=== PATIENT | male | born 1975 | race Caucasian/White ===

== ENCOUNTER 2018-02-07 17:55 | Inpatient (IN) | payer SELFPAY ==
[~2018-02-07] VITALS: Ht 182.9 cm; Wt 97.3 kg
--- NOTE | 2018-02-07 18:03 | ED.ADGEN ---
Past History Past Medical History: Anxiety, Arthritis, Bipolar, Depression, Other Past Surgical History: Other Smoking: Cigarettes Alcohol Use: None Drug Use: None Adult General Chief Complaint Chief Complaint ".. I came here form Law... for a program... at the [facility].... I... have PTSD..... I took all my Haldol..... and bunch of sedatives.. I ..just want to go asleep .. and never wake up....But all my friends... told be to tell the nurse...." HPI HPI Patient is a 42 year old male who presents with above hx and complaints of over dosage of Haldol and Benzo's. Reported took 72 mg of Haldol and unknown amount of Xanax. Ingestion occurred over 2 hours ago. Patient has medical history of PTSD, depression, polysubstance abuse, anxiety disorder, arthritis, bipolar. Patient is living on campus at [facility] here in [place] for a treatment program. Patient denies previous history of suicide attempts. Review of Systems Review of Systems Patient has no physical complaints other than arthritis Constitutional: Denies fever or chills [] Eyes: Denies change in visual acuity, redness, or eye pain [] HENT: Denies nasal congestion or sore throat [] Respiratory: Denies cough or shortness of breath [] Cardiovascular: No additional information not addressed in HPI [] GI: Denies abdominal pain, nausea, vomiting, bloody stools or diarrhea [] : Denies dysuria or hematuria [] Musculoskeletal: Denies back pain or joint pain []complains of arthritis Integument: Denies rash or skin lesions [] Neurologic: Denies headache, focal weakness or sensory changes [] Endocrine: Denies polyuria or polydipsia [] All other systems were reviewed and found to be within normal limits, except as documented in this note. Family History Family History Family history Limited from patient Current Medications Current Medications Current Medications Medications (Trade) Dose Ordered Sig/[place] Start Time Stop Time Status Last Admin Dose Admin Lactated Ringer's 1,000 ml @ 160 mls/hr Q6H15M 02/07/18 19:15 02/08/18 04:09 160 MLS/HR Multivitamins/ Minerals 10 ml/ Folic Acid 1 mg/ Thiamine HCl 100 mg/Sodium Chloride 1,011.1 ml @ 1,000 mls/ hr 1X ONCE 02/07/18 18:15 02/07/18 19:15 DC 02/07/18 19:36 1,000 MLS/HR See nursing for home meds Allergies Allergies Allergies Coded Allergies Type Severity Reaction Last Updated Verified diclofenac Allergy Unknown 02/07/18 Yes zolpidem Allergy Unknown 02/07/18 Yes Physical Exam Physical Exam Constitutional: , no acute distress, sedate appearance. [] HENT: Normocephalic, atraumatic, bilateral external ears normal, oropharynx moist, no oral exudates, nose normal. [] Eyes: PERRLA, EOMI, conjunctiva normal, no discharge. [] Neck: Normal range of motion, no tenderness, supple, no stridor. [] Cardiovascular:Heart rate regular rhythm, no murmur [] Lungs & Thorax: Bilateral breath sounds equal at apex with scattered wheezes auscultation [] Abdomen: Bowel sounds normal, soft, no tenderness, no masses, no pulsatile masses. [] Skin: Warm, dry, no erythema, no rash. [] Back: No tenderness, no CVA tenderness. [] Extremities: No tenderness, no cyanosis, no clubbing, ROM intact, no edema. [] Neurologic: Alert and oriented X 3, normal motor function, normal sensory function, no focal deficits noted. [] Psychologic: Affect flat, judgement poor insight, mood depressed Current Patient Data Vital Signs Vital Signs Date Time Temp Pulse Resp B/P (MAP) Pulse Ox O2 Delivery O2 Flow Rate FiO2 02/07/18 19:47 67 18 95 02/07/18 17:55 97.9 Room Air Lab Results Laboratory Tests Test 02/07/18 18:03 White Blood Count 6.8 x10^3/uL (4.0-11.0) Red Blood Count 4.33 x10^6/uL (4.30-5.70) Hemoglobin 13.5 g/dL (13.0-17.5) Hematocrit 39.6 % (39.0-53.0) Mean Corpuscular Volume 91 fL (79-100) Mean Corpuscular Hemoglobin 31 pg (25-35) Mean Corpuscular Hemoglobin Concent 34 g/dL (31-37) Red Cell Distribution Width 13.3 % (11.5-14.5) Platelet Count 219 x10^3/uL (140-400) Neutrophils (%) (Auto) 65 % (31-73) Lymphocytes (%) (Auto) 24 % (24-48) Monocytes (%) (Auto) 10 % (0-9) H Eosinophils (%) (Auto) 1 % (0-3) Basophils (%) (Auto) 0 % (0-3) Neutrophils # (Auto) 4.4 x10^3uL (1.8-7.7) Lymphocytes # (Auto) 1.6 x10^3/uL (1.0-4.8) Monocytes # (Auto) 0.7 x10^3/uL (0.0-1.1) Eosinophils # (Auto) 0.1 x10^3/uL (0.0-0.7) Basophils # (Auto) 0.0 x10^3/uL (0.0-0.2) Prothrombin Time 10.3 SEC (9.4-11.4) Prothrombin Time INR 1.0 (0.9-1.1) PTT 25 SEC (23-33) Sodium Level 138 mmol/L (136-145) Potassium Level 4.0 mmol/L (3.5-5.1) Chloride Level 103 mmol/L (98-107) Carbon Dioxide Level 29 mmol/L (21-32) Anion Gap 6 (6-14) Blood Urea Nitrogen 22 mg/dL (8-26) Creatinine 1.2 mg/dL (0.7-1.3) Estimated GFR (Cockcroft-Gault) 66.7 Glucose Level 117 mg/dL (70-99) H Calcium Level 9.1 mg/dL (8.5-10.1) Magnesium Level 2.0 mg/dL (1.8-2.4) Ammonia 27 mcmol/L (11-34) Creatine Kinase 127 U/L (39-308) Troponin I Quantitative < 0.017 ng/mL (0-0.055) BJ-Rec-[id number]-Type Natriuretic Peptide 48 pg/mL (0-124) Salicylates Level 0.7 mg/dL (2.8-20.0) L Salicylate Last Dose Date Unk Salicylate Last Dose Time Unk Acetaminophen Level < 2.0 mcg/mL (10-30) L Acetaminophen Last Dose Date Unk Acetaminophen Last Dose Time Unk Ethyl Alcohol Level < 10 mg/dL (0-10) EKG EKG My interpretation EKG shows a sinus rhythm at 84 bpm no acute morphology[] Radiology/Procedures Radiology/Procedures My interpretation of the chest shows no acute cardiopulmonary findings. There is some basilar atelectasis. Course & Med Decision Making Course & Med Decision Making Pertinent Labs and Imaging studies reviewed. (See chart for details). Discussed presentation, testing and tx. plan. Admit to Dr. Dockery Patient be admitted on suicidal precautions. Follow-up for toxic changes from alleged drug overdose. Consider psych consult in morning. [] Final Impression Final Impression 1. Polysubstance Over Dose 2. Suicidal Attempt 3. Hx. Bipolar 4 Hx Anxiety Disorder 5. PTSD 6. Arthritis complaints 7. Chews Tobacco Dragon Disclaimer Dragon Disclaimer This electronic medical record was generated, in whole or in part, using a voice recognition dictation system. MARCELLA MENDOZA MD Feb 07, 2018 18:03
[2018-02-07] MEDS ORDERED: MVI, ADULT NO.4 WITH VIT K 10 ML, FOLIC ACID SYRINGE for ER 1 MG, THIAMINE INJ 100 MG i... IV ONE ×4 (18:15)
[2018-02-07 18:22] LABS: BASO % 0 % (0-3); EOS # 0.1 x10^3/uL (0.0-0.7); EOS % 1 % (0-3); HEMATOCRIT 39.6 % (39.0-53.0); HEMOGLOBIN 13.5 g/dL (13.0-17.5); LYMPH # 1.6 x10^3/uL (1.0-4.8); LYMPH % 24 % (24-48); MEAN CORPUSCULAR HEMOGLOBIN 31 pg (25-35); MEAN CORPUSCULAR HGB CONC 34 g/dL (31-37); MEAN CORPUSCULAR VOLUME 91 fL (79-100); MONO # 0.7 x10^3/uL (0.0-1.1); MONO % 10 % (0-9); NEUT # 4.4 x10^3uL (1.8-7.7); NEUT % 65 % (31-73); PLATELET COUNT 219 x10^3/uL (140-400); RED BLOOD COUNT 4.33 x10^6/uL (4.30-5.70); RED CELL DISTRIBUTION WIDTH 13.3 % (11.5-14.5); WHITE BLOOD COUNT 6.8 x10^3/uL (4.0-11.0)
[2018-02-07 18:33] LABS: ETHANOL < 10 mg/dL (0-10); SALIC 0.7 mg/dL (2.8-20.0)
[2018-02-07 18:35] LABS: ACETAMIN < 2.0 mcg/mL (10-30)
[2018-02-07 18:44] LABS: CALCIUM 9.1 mg/dL (8.5-10.1); CREATININE 1.2 mg/dL (0.7-1.3); GFR 66.7
[2018-02-07] MEDS ORDERED: IV RINGERS SOLUTION,LACTATED 1,000 ML IV ONE (19:00)
[2018-02-07] MEDS ORDERED: IPRATRPIUM/ALBUTEROL 0.5/2.5MG 3 ML NEBU. NEB SCH (20:00)
--- NOTE | 2018-02-07 20:05 | EKG ---
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
[2018-02-07 20:53] LABS: AMPHETAMINE/METHAMPHETAMINE NEG (NEG); BARBITURATES NEG (NEG); BENZODIAZEPINES NEG (NEG); CANNABINOIDS NEG (NEG); COCAINE NEG (NEG); METHADONE NEG (NEG); OPIATES NEG (NEG); PHENCYCLIDINE NEG (NEG)
[2018-02-07 20:54] LABS: BACTERIA,URINE FEW /HPF (0-FEW); BILIRUBIN,URINE NEG (NEG); CLARITY,URINE CLEAR; COLOR,URINE AMBER; GLUCOSE,URINE NEG (NEG); NITRITE,URINE NEG (NEG); UROBILINOGEN,URINE 1 mg/dL (0.2 mg/dL)
[2018-02-07] MEDS: IV RINGERS SOLUTION,LACTATED 1,000 ML IV SCH (21:22)
[2018-02-07 22:31] VITALS: BP 122/87
[2018-02-07] MEDS ORDERED: GABA600T2 PO (23:11)
[2018-02-07] MEDS ORDERED: TIZANIDINE HCL2 M1 PO (23:17)
[2018-02-07] MEDS ORDERED: OMEP20TA8 PO (23:18)
[2018-02-07] MEDS ORDERED: DIVA500T4 PO (23:18)
[2018-02-07] MEDS ORDERED: QUET100T4 PO (23:21)
[2018-02-07] MEDS ORDERED: QUET200T4 PO (23:22)
[2018-02-07] MEDS ORDERED: BUPR1FIL5 SL (23:24)
[2018-02-07 23:25] VITALS: BP 114/80
[2018-02-07 23:48] VITALS: BP 99/65
[2018-02-08] VITALS (11 sets, daily range): BP systolic 86–119; BP diastolic 48–74
[2018-02-08] MEDS ORDERED: IBUP400T18 PO
[2018-02-08] MEDS ORDERED: DOCU100C28 PO
[2018-02-08] MEDS ORDERED: FLUO40CA2 PO (00:02)
[2018-02-08] MEDS ORDERED: CHOL10003 PO (00:06)
[2018-02-08] MEDS ORDERED: BISA5TAB4 PO (00:07)
[2018-02-08] MEDS ORDERED: DEXT15DR5 EACHEYE (00:08)
[2018-02-08] MEDS ORDERED: THIA100T8 PO (00:08)
[2018-02-08] MEDS ORDERED: SODI30SP NS (00:09)
[2018-02-08] MEDS: IV RINGERS SOLUTION,LACTATED 1,000 ML IV SCH (04:09)
[2018-02-08] MEDS ORDERED: ALBUTEROL SULFATE 2.5 MG/3 ML NEBU. NEB PRN (05:30)
[2018-02-08 06:53] LABS: BASO % 0 % (0-3); EOS # 0.1 x10^3/uL (0.0-0.7); EOS % 3 % (0-3); HEMATOCRIT 36.5 % (39.0-53.0); HEMOGLOBIN 12.5 g/dL (13.0-17.5); LYMPH # 1.8 x10^3/uL (1.0-4.8); LYMPH % 32 % (24-48); MEAN CORPUSCULAR HEMOGLOBIN 31 pg (25-35); MEAN CORPUSCULAR HGB CONC 34 g/dL (31-37); MEAN CORPUSCULAR VOLUME 90 fL (79-100); MONO # 0.6 x10^3/uL (0.0-1.1); MONO % 11 % (0-9); NEUT # 3.1 x10^3uL (1.8-7.7); NEUT % 54 % (31-73); PLATELET COUNT 181 x10^3/uL (140-400); RED BLOOD COUNT 4.05 x10^6/uL (4.30-5.70); RED CELL DISTRIBUTION WIDTH 13.2 % (11.5-14.5); WHITE BLOOD COUNT 5.7 x10^3/uL (4.0-11.0)
[2018-02-08 07:06] LABS: CALCIUM 8.5 mg/dL (8.5-10.1); CREATININE 0.8 mg/dL (0.7-1.3); GFR 106.5; POTASSIUM 4.1 mmol/L (3.5-5.1)
--- NOTE | 2018-02-08 08:16 | RAD ---
Chest radiograph 02/07/2018 5:41 PM INDICATION: Overdose COMPARISON: None available TECHNIQUE: Portable upright frontal view of the chest is provided. FINDINGS: The cardiomediastinal silhouette is within normal limits. There are no pleural effusions. There is no pulmonary vascular congestion. There is no pneumothorax. The lungs are clear. No significant osseous abnormality is identified. IMPRESSION: No acute cardiopulmonary process. Electronically signed by: Debi Bermeo MD (02/08/2018 8:13 AM) [id number]
--- NOTE | 2018-02-08 11:17 | EKG ---
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
--- NOTE | 2018-02-08 13:21 | PDOC1 ---
History of Present Illness History of Present Illness Patient is 42-year-old male resident at the [facility] with report of intentional overdose/suicidal ideation. Patient has history of bipolar disorder and anxiety and PTSD, patient states that [facility] recommendations were he be admitted inpatient psych at [facility] for further treatment. Patient dissatisfied and reportedly took 72 mg of Haldol and an unknown quantity of Xanax. He is very quiet and doesn't offer much history, when asked if he intended to hurt himself "I don't know what I'm doing. " He denies any acute complaints, nurses report he's been sleeping most of the time easily arousable. He has no prior history of suicidal ideation/attempt. Unremarkable workup in the emergency department, EKG normal sinus rhythm 84 bpm no QRS widening or prolonged QTC. Chest x-ray unremarkable labs normal as below and urine drug screen negative. Greater than 20 hours past time of overdose at this point, poison control's recommendations were telemetry monitoring and repeat EKG this morning if no new changes medically stable for placement. A screener was initially scheduled to come see the patient however at this point he is agreeable/voluntary inpatient psychiatric admission at [facility]. Chief Complaint: OVERDOSE Allergies: Coded Allergies: diclofenac (Verified Allergy, Intermediate, 02/08/18) zolpidem (Verified Allergy, Intermediate, 02/08/18) Past Medical History Psych: Anxiety, Bipolar (PTSD) Musculoskeletal: Osteoarthritis Past Social History Smoke: <1 pack per day (chews tobacco) Alcohol: none Drugs: None Review of Systems Review Of Systems Fourteen system , review of systems has been reviewed. See HPI for pertinent positives and negative responses, other shah all other systems are negative, non pertinent or non contributory Constitutional: Weakness; No: Fever, Chills Eyes: No: Decreased vision, Double vision, Eye Pain ENT: No: Ear pain, Nose congestion, Throat pain Respiratory: No: Cough, Shortness of breath, Wheezing Cardiovascular: No: Chest Pain, Palpitations, Edema Gastrointestinal: No: Nausea, Vomiting, Abdominal Pain Musculoskeletal: YES: Joint Pain; No: Gait Disturbance, Muscle Pain Medications Current Medications Multivitamins/ Minerals 10 ml/ Folic Acid 1 mg/ Thiamine HCl 100 mg/Sodium Chloride 1,011.1 ml @ 1,000 mls/ hr 1X ONCE IV Last administered on at 19:36; Start 02/07/18 at 18:15; Stop 02/07/18 at 19:15; Status DC Lactated Ringer's 1,000 ml @ 75 mls/hr 1X ONCE IV Last administered on at 19:19; Start 02/07/18 at 19:00; Stop 02/08/18 at 08:19; Status DC Albuterol/ Ipratropium (Duoneb) 3 ml RTQID NEB ; Start 02/07/18 at 20:00; Stop 02/08/18 at 05:16; Status DC Lactated Ringer's 1,000 ml @ 160 mls/hr Q6H15M IV Last administered on at 04:09; Start 02/07/18 at 19:15 Albuterol Sulfate (Ventolin) 2.5 mg PRN QID PRN NEB CONGESTION; Start 02/08/18 at 05:30 Active Scripts Active Reported Saline Nasal Breeden (Sodium Chloride) 30 Ml Bre[place] 1 Spr NS QID PRN Thiamine Hcl 100 Mg Tablet 100 Mg PO DAILY Artificial Tears Eye Drops (Dextran 70/Hypromellose) 15 Ml Drops 1 Drop EACHEYE QID PRN Bisacodyl 5 Mg Tablet.dr 10 Mg PO PRN DAILY PRN Vitamin D3 (Cholecalciferol (Vitamin D3)) 1,000 Unit Tablet 2 Tab PO DAILY Fluoxetine Hcl 40 Mg Capsule 60 Mg PO DAILY Docusate Sodium 100 Mg Capsule 200 Mg PO BID Ibuprofen 400 Mg Tablet 600 Mg PO TID PRN PRN Suboxone 8 Mg-2 Mg Sl Film (Buprenorphine Hcl/Naloxone Hcl) 1 Each Film 1 Strip SL BID Seroquel (Quetiapine Fumarate) 200 Mg Tablet 2.5 Tab PO QHS Seroquel (Quetiapine Fumarate) 100 Mg Tablet 1 Tab PO BID92 Omeprazole 20 Mg Tablet.dr 1 Tab PO BID Depakote Er (Divalproex Sodium) 500 Mg Tab.er.24h 1,500 Mg PO HS Tizanidine Hcl (Tizanidine HCl) 2 Mg Capsule 6 Mg PO BID Gabapentin 600 Mg Tablet 600 Mg PO TID Exam Vital Signs Vital Signs Date Time Temp Pulse Resp B/P (MAP) Pulse Ox O2 Delivery O2 Flow Rate FiO2 02/08/18 08:30 Room Air 02/08/18 06:00 70 91/48 (62) 94 9/14/18 02:49 98.0 2.0 02/08/18 01:00 18 General Appearance: Other (lying in bed sleeping easily arousable with verbal stimuli) HEENT: Atraumatic, PERRLA, EOMI, Mucous membr. moist/pink Respiratory: Clear to auscultation, Normal air movement Heart: Normal S1, Normal S2, No murmurs Abdominal: Normal bowel sounds, Soft, No tenderness Neuro: Normal speech, Normal tone, Sensation intact, Cranial nerves 3-12 NL Psych/Mental Status: Other (flat affect and poor eye contact, does not admit or denies suicidal ideation appears depressed) Assessment/Plan Assessment/Plan Intentional overdose (Haldol and Xanax, urine drug screen was negative for benzos) Suicidal ideation History of bipolar disorder and PTSD Chewing tobacco abuse Patient agrees to voluntary inpatient psychiatric admission at [facility] COURSE Allergies Coded Allergies Type Severity Reaction Last Updated Verified diclofenac Allergy Intermediate 02/08/18 Yes zolpidem Allergy Intermediate 02/08/18 Yes Laboratory Tests Test 02/07/18 18:03 02/07/18 20:30 02/07/18 22:44 02/08/18 05:43 White Blood Count 6.8 x10^3/uL (4.0-11.0) 5.7 x10^3/uL (4.0-11.0) Red Blood Count 4.33 x10^6/uL (4.30-5.70) 4.05 x10^6/uL (4.30-5.70) Hemoglobin 13.5 g/dL (13.0-17.5) 12.5 g/dL (13.0-17.5) Hematocrit 39.6 % (39.0-53.0) 36.5 % (39.0-53.0) Mean Corpuscular Volume 91 fL (79-100) 90 fL (79-100) Mean Corpuscular Hemoglobin 31 pg (25-35) 31 pg (25-35) Mean Corpuscular Hemoglobin Concent 34 g/dL (31-37) 34 g/dL (31-37) Red Cell Distribution Width 13.3 % (11.5-14.5) 13.2 % (11.5-14.5) Platelet Count 219 x10^3/uL (140-400) 181 x10^3/uL (140-400) Neutrophils (%) (Auto) 65 % (31-73) 54 % (31-73) Lymphocytes (%) (Auto) 24 % (24-48) 32 % (24-48) Monocytes (%) (Auto) 10 % (0-9) 11 % (0-9) Eosinophils (%) (Auto) 1 % (0-3) 3 % (0-3) Basophils (%) (Auto) 0 % (0-3) 0 % (0-3) Neutrophils # (Auto) 4.4 x10^3uL (1.8-7.7) 3.1 x10^3uL (1.8-7.7) Lymphocytes # (Auto) 1.6 x10^3/uL (1.0-4.8) 1.8 x10^3/uL (1.0-4.8) Monocytes # (Auto) 0.7 x10^3/uL (0.0-1.1) 0.6 x10^3/uL (0.0-1.1) Eosinophils # (Auto) 0.1 x10^3/uL (0.0-0.7) 0.1 x10^3/uL (0.0-0.7) Basophils # (Auto) 0.0 x10^3/uL (0.0-0.2) 0.0 x10^3/uL (0.0-0.2) Prothrombin Time 10.3 SEC (9.4-11.4) Prothromb Time International Ratio 1.0 (0.9-1.1) Activated Partial Thromboplast Time 25 SEC (23-33) Sodium Level 138 mmol/L (136-145) 139 mmol/L (136-145) Potassium Level 4.0 mmol/L (3.5-5.1) 4.1 mmol/L (3.5-5.1) Chloride Level 103 mmol/L (98-107) 104 mmol/L (98-107) Carbon Dioxide Level 29 mmol/L (21-32) 29 mmol/L (21-32) Anion Gap 6 (6-14) 6 (6-14) Blood Urea Nitrogen 22 mg/dL (8-26) 16 mg/dL (8-26) Creatinine 1.2 mg/dL (0.7-1.3) 0.8 mg/dL (0.7-1.3) Estimated GFR (Cockcroft-Gault) 66.7 106.5 Glucose Level 117 mg/dL (70-99) 84 mg/dL (70-99) Calcium Level 9.1 mg/dL (8.5-10.1) 8.5 mg/dL (8.5-10.1) Magnesium Level 2.0 mg/dL (1.8-2.4) Ammonia 27 mcmol/L (11-34) Creatine Kinase 127 U/L (39-308) Troponin I Quantitative < 0.017 ng/mL (0-0.055) < 0.017 ng/mL (0-0.055) [id number]-Type Natriuretic Peptide 48 pg/mL (0-124) Thyroid Stimulating Hormone (TSH) 1.804 uIU/mL (0.358-3.740) Salicylates Level 0.7 mg/dL (2.8-20.0) Salicylate Last Dose Date Unk Salicylate Last Dose Time Unk Acetaminophen Level < 2.0 mcg/mL (10-30) Acetaminophen Last Dose Date Unk Acetaminophen Last Dose Time Unk Ethyl Alcohol Level < 10 mg/dL (0-10) Urine Collection Type Unknown Urine Color Trena Urine Clarity Clear Urine pH 6.0 Urine Specific [place] 1.020 Urine Protein Neg (NEG-TRACE) Urine Glucose (UA) Neg mg/dL (NEG) Urine Ketones (Stick) Neg mg/dL (NEG) Urine Blood Neg (NEG) Urine Nitrite Neg (NEG) Urine Bilirubin Neg (NEG) Urine Urobilinogen Dipstick 1 mg/dL (0.2 mg/dL) Urine Leukocyte Esterase Neg (NEG) Urine RBC 3-5 /HPF (0-2) Urine WBC 1-4 /HPF (0-4) Urine Squamous Epithelial Cells None /LPF Urine Bacteria Few /HPF (0-FEW) Urine Mucus Slight /LPF Urine Opiates Screen Neg (NEG) Urine Methadone Screen Neg (NEG) Urine Barbiturates Neg (NEG) Urine Phencyclidine Screen Neg (NEG) Urine Amphetamine/Methamphetamine Neg (NEG) Urine Benzodiazepines Screen Neg (NEG) Urine Cocaine Screen Neg (NEG) Urine Cannabinoids Screen Neg (NEG) Urine Ethyl Alcohol Neg (NEG) Current Medications Medications (Trade) Dose Ordered Sig/[facility] Route PRN Reason Start Time Stop Time Status Last Admin Dose Admin Multivitamins/ Minerals 10 ml/ Folic Acid 1 mg/ Thiamine HCl 100 mg/Sodium Chloride 1,011.1 ml @ 1,000 mls/ hr 1X ONCE IV 02/07/18 18:15 02/07/18 19:15 DC 02/07/18 19:36 Lactated Ringer's 1,000 ml @ 75 mls/hr 1X ONCE IV 02/07/18 19:00 02/08/18 08:19 DC 02/07/18 19:19 Albuterol/ Ipratropium (Duoneb) 3 ml RTQID NEB 02/07/18 20:00 02/08/18 05:16 DC Lactated Ringer's 1,000 ml @ 160 mls/hr Q6H15M IV 02/07/18 19:15 02/08/18 04:09 Albuterol Sulfate (Ventolin) 2.5 mg PRN QID PRN NEB CONGESTION 02/08/18 05:30 I & O 02/08/18 00:00 Intake Total 2000 ml Balance 2000 ml Orders Procedure Category Date Status Time Vital Signs ER 02/07/18 Transmitted 18:04 Bp Monitoring ER 02/07/18 Transmitted 18:04 Employee Representative ER 02/07/18 Transmitted 18:04 Continuous Pulse ER 02/07/18 Transmitted Oximetry 18:04 Temperature Monitoring ER 02/07/18 Transmitted 18:04 Saline Lock ER 02/07/18 Transmitted 18:04 Cath Bladder ER 02/07/18 Transmitted Non-Indwelling 18:04 Basic Metabolic Panel LAB 02/07/18 Complete 18:04 Cbc W Autodiff LAB 02/07/18 Complete 18:04 Ua, Cult If Indicated LAB 02/07/18 Complete 18:04 Drugs Of Abuse Ur LAB 02/07/18 Complete 18:04 Portable Chest 1v RAD 02/07/18 Resulted 18:04 12 Lead Ekg EKG 02/07/18 Resulted 18:04 Protime LAB 02/07/18 Complete 18:04 Partial LAB 02/07/18 Complete Thromboplastin Time 18:04 Creatine Kinase LAB 02/07/18 Complete 18:04 Troponin I LAB 02/07/18 Complete 18:04 Magnesium LAB 02/07/18 Complete 18:04 Ammonia LAB 02/07/18 Complete 18:04 Nt-Pro Bnp LAB 02/07/18 Complete 18:04 Suicide Precautions DARREN 02/07/18 In Process 18:04 Ethanol LAB 02/07/18 Complete 18:04 Salicylate LAB 02/07/18 Complete 18:04 Acetaminophen LAB 02/07/18 Complete 04:00 Mvi, Adult No.4 With PHA 02/07/18 Complete Vit K (Infuvite Shan 18:15 Thyroid Stim Hormone LAB 02/07/18 Complete (Tsh) 18:04 Iv Ringers PHA 02/07/18 Complete Solution,Lactated (Iv 19:00 [place] Order ADT 02/07/18 Transmitted 19:10 Code Status CODE 02/07/18 Transmitted 19:10 Vital Signs, Per [facility] 02/07/18 In Process Protocol 19:10 Oxygen DARREN 02/07/18 In Process 19:10 Advance Diet As [facility] 02/07/18 In Process Tolerated 19:10 Ambulate With [facility] 02/07/18 In Process Assistance 19:10 Fall Precautions [facility] 02/07/18 In Process 19:10 Cbc W Autodiff LAB 02/08/18 Complete 06:00 Basic Metabolic Panel LAB 02/08/18 Complete 06:00 Troponin I LAB 02/07/18 Complete 22:10 Neuro Check Q 4 Hrs DARREN 02/07/18 In Process 19:10 Ipratrpium/Albuterol PHA 02/07/18 Complete 0.5/2.5mg (Duoneb) 20:00 Suicide Precautions [facility] 02/07/18 In Process 19:10 Incentive Spirometer RT 02/07/18 Complete Incentive Spirometry DARREN 02/07/18 In Process 19:10 Pneumatic Compression DARREN 02/07/18 In Process Device 19:10 Iv Ringers PHA 02/07/18 In Process Solution,Lactated (Iv 19:15 Admit Orders ADT 02/07/18 Transmitted Mrsa By Pcr LAB 02/07/18 In Process 22:50 1:1 Observation DARREN 02/07/18 In Process 22:40 Regular DIET 02/08/18 Transmitted Breakfast Consult Physician By CONS 02/08/18 Transmitted Name 00:20 [place] [facility] CONS 02/08/18 Transmitted Center 00:20 Albuterol Sulfate PHA 02/08/18 In Process (Ventolin) 05:30 12 Lead Ekg EKG 02/08/18 Complete 11:05 Discharge From ADT 9/14/18 Transmitted Hospital Vital Signs Date Time Temp Pulse Resp B/P (MAP) Pulse Ox O2 Delivery O2 Flow Rate FiO2 02/08/18 08:30 Room Air 02/08/18 06:00 70 91/48 (62) 94 02/08/18 02:49 98.0 2.0 02/08/18 01:00 18 SKIP DELONG DO Feb 08, 2018 13:21
== END 2018-02-08 13:46 | DRG 918 ==
LOC: ER 17:55 → ICU 19:53
PROVIDERS: ADMIT Neuromusculoskeletal Medicine & OMM; ATTEND Neuromusculoskeletal Medicine & OMM
DX: T43.4X2A Poisoning by butyrophenone and thiothixene neuroleptics, intentional self-harm, initial encounter (principal); F17.210 Nicotine dependence, cigarettes, uncomplicated; F31.9 Bipolar disorder, unspecified; F43.10 Post-traumatic stress disorder, unspecified; F41.9 Anxiety disorder, unspecified; M19.90 Unspecified osteoarthritis, unspecified site; Y92.89 Other specified places as the place of occurrence of the external cause; Z88.8 Allergy status to other drugs, medicaments and biological substances
CPT/HCPCS: 36415; 71045; 80048; 80307; 81001; 82140; 82550; 83735; 83880; 84443; 84484; 85025; 85610; 85730; 87641; 93005; 96361; 96365; G0238; G0480; G6039; J7120; 82003; 99285-25; G0479; J7030